=== PATIENT | female | born 1955 | race Caucasian/White ===

== ENCOUNTER → 2017-02-14 | Outpatient (CLI) | payer OTHER ==
[~2017-02-14] MED LIST: ASPI-515 PO; GLYB1.252 PO; LEVO137T3 PO; METF10002 PO; NITR50CA PO; PRAV10TA2 PO; RAMI5CAP PO; TRAM50TA2 PO
== END | disposition home or self-care (01) ==
LOC: RAD 11:32
PROVIDERS: ATTEND Registered Nurse
DX: M54.16 Radiculopathy, lumbar region (principal); Z98.1 Arthrodesis status; M51.37 Other intervertebral disc degeneration, lumbosacral region; M54.12 Radiculopathy, cervical region
CPT/HCPCS: 36415; 72050; 72110; 72148; 72156; 82565

== ENCOUNTER 2017-03-30 08:49 | Emergency (ER) | payer OTHER ==
[~2017-03-30] VITALS: Ht 177.8 cm; Wt 145.0 kg
[2017-03-30 08:51] VITALS: BP 161/92
[2017-03-30] MEDS ORDERED: METF500T4 PO ×2 (10:04)
[2017-03-30] MEDS ORDERED: SODIUM CHLORIDE 0.9% 1,000 ML IV ONE (10:20)
[2017-03-30] MEDS ORDERED: FAMOTIDINE 20 MG/2 ML IVP ONE (10:30)
[2017-03-30] MEDS ORDERED: MAALOX/HYOSCYAMINE/LIDOCAINE 45 ML BOTTLE PO ONE (10:30)
[2017-03-30] MEDS ORDERED: MAALOX/HYOSCYAMINE/LIDOCAINE 45 ML BOTTLE ONE (10:36)
[2017-03-30] MEDS ORDERED: ONDANSETRON 2MG/ML, 2ML ONE (10:36)
[2017-03-30] MEDS ORDERED: FAMOTIDINE 20 MG/2 ML ONE (10:36)
[2017-03-30] MEDS: ONDANSETRON 2MG/ML, 2ML IVPush ONE ×2 (10:56→10:59)
[2017-03-30 11:04] LABS: ASPARTATE AMINO TRANSFERASE 11 U/L (15-37); BLOOD UREA NITROGEN 14 mg/dL (7-18)
== END 2017-03-30 12:16 | disposition home or self-care (01) ==
LOC: ED 12:10
DX: R10.13 Epigastric pain (principal); R11.2 Nausea with vomiting, unspecified; M54.9 Dorsalgia, unspecified; G89.29 Other chronic pain; M19.90 Unspecified osteoarthritis, unspecified site; E11.9 Type 2 diabetes mellitus without complications; E66.9 Obesity, unspecified; Z90.49 Acquired absence of other specified parts of digestive tract; Z88.2 Allergy status to sulfonamides
CPT/HCPCS: 36415; 71010; 76700; 80053; 83690; 85025; 93005; 96361; 96374; J2405; J7030; S0028

== ENCOUNTER 2017-07-13 10:04 | Emergency (ER) | payer OTHER ==
[~2017-07-13] VITALS: Ht 177.8 cm; Wt 148.2 kg
[~2017-07-13 10:04] MED LIST changes: +METF500T4 PO
[2017-07-13] MEDS ORDERED: PHENYLEPHRINE NASAL 1%, 15ML SPRAY ONE (10:31)
[2017-07-13] MEDS ORDERED: LIDOCAINE 1%, 20ML ONE (10:31)
[2017-07-13] MEDS ORDERED: SILVER NITRATE STICK TP ONE (10:44)
[2017-07-13 11:03] VITALS: BP 150/84
== END 2017-07-13 11:43 | disposition home or self-care (01) ==
LOC: ED 11:35
DX: R04.0 Epistaxis (principal); E11.9 Type 2 diabetes mellitus without complications; M54.5 Low back pain; G89.29 Other chronic pain
CPT/HCPCS: 30901; 93005; 99284

== ENCOUNTER → 2017-07-18 | Outpatient (CLI) | payer OTHER | END | disposition home or self-care (01) | LOC: CFH 14:55 | PROVIDERS: ATTEND Internal Medicine Critical Care Medicine | DX: R91.8 Other nonspecific abnormal finding of lung field (principal) | CPT/HCPCS: 71250 ==

== ENCOUNTER 2017-09-26 11:12 | Emergency (ER) | payer OTHER ==
[~2017-09-26] VITALS: Ht 177.8 cm; Wt 142.0 kg
[2017-09-26] MEDS ORDERED: DIPHENHYDRAMINE 50 MG/ML, 1ML IVPush ONE (12:00)
[2017-09-26] MEDS ORDERED: SODIUM CHLORIDE 0.9% 1,000ML IVBOLUS ONE (12:00)
[2017-09-26] MEDS ORDERED: SODIUM CHLORIDE FLUSH 10ML SYR IVF ONE (12:00)
[2017-09-26] MEDS ORDERED: PROCHLORPERAZINE 5 MG/ML, 2ML IVPush ONE (12:00)
[2017-09-26 12:08] LABS: HEMATOCRIT 43.4 % (34.6-47.8); HEMOGLOBIN 14.3 g/dL (11.7-16.4); WHITE BLOOD COUNT 9.3 x10^3/uL (3.4-10)
[2017-09-26] MEDS ORDERED: DIPHENHYDRAMINE 50 MG/ML, 1ML ONE (12:10)
[2017-09-26] MEDS ORDERED: PROCHLORPERAZINE 5 MG/ML, 2ML ONE (12:10)
[2017-09-26 12:19] LABS: BLOOD UREA NITROGEN 13 mg/dL (7-18)
[2017-09-26 12:35] LABS: PATH.CAST-FLAG NOT PRESENT; SPERM-FLAG NOT PRESENT; SRC-FLAG NOT PRESENT; XTAL-FLAG NOT PRESENT; YLC-FLAG NOT PRESENT
[2017-09-26 14:56] VITALS: BP 134/75
== END 2017-09-26 14:59 | disposition home or self-care (01) ==
LOC: ED 12:10
DX: N30.00 Acute cystitis without hematuria (principal); E11.9 Type 2 diabetes mellitus without complications; M19.90 Unspecified osteoarthritis, unspecified site; Z90.49 Acquired absence of other specified parts of digestive tract; Z88.1 Allergy status to other antibiotic agents
CPT/HCPCS: 36415; 80048; 81001; 82040; 85025; 87077; 87086; 87147; 96361; 96374; 96375; 99284; J0780; J1200; J7030; 87186

== ENCOUNTER 2017-11-26 12:19 | Inpatient (IN) | payer OTHER ==
[~2017-11-26] VITALS: Ht 175.3 cm; Wt 143.3 kg
[2017-11-26] MEDS ORDERED: ASPIRIN 81 MG TABLET CHEW ONE (12:53)
[2017-11-26] MEDS ORDERED: ASPIRIN 81 MG TABLET CHEW PO ONE (13:00)
[2017-11-26 13:17] LABS: BASOPHILS # (AUTO) 0.02 x10^3/uL (0-0.1); BASOPHILS % (AUTO) 0 % (0-1); EOSINOPHILS # (AUTO) 0.15 x10^3/uL (0-0.4); EOSINOPHILS % (AUTO) 2 % (1-7); LYMPHOCYTES # (AUTO) 1.55 x10^3/uL (1-3.4); LYMPHOCYTES % (AUTO) 16 % (22-44); MD NO; MEAN CORPUSCULAR HEMOGLOBIN 29.8 pg (27.0-34.8); MEAN CORPUSCULAR HGB CONC 33.5 g/dL (32.4-35.8); MEAN PLATELET VOLUME 7.4 fL (7.4-10.4); MONOCYTES # (AUTO) 0.48 x10^3/uL (0.2-0.8); MONOCYTES % (AUTO) 5 % (2-9); NEUTROPHILS # (AUTO) 7.51 x10^3/uL (1.8-6.8); NEUTROPHILS % (AUTO) 77 % (42-75); PLATELET COUNT 301 x10^3/uL (130-400); RED BLOOD COUNT 4.68 x10^6/uL (3.82-5.3); RED CELL DISTRIBUTION WIDTH 14.4 % (9.6-15.2)
[2017-11-26 13:29] LABS: ALBUMIN 3.3 g/dL (3.4-5.0); ANION GAP 10 mmol/L (5-15); CALCIUM 8.5 mg/dL (8.5-10.1); CHLORIDE 110 mmol/L (98-107)
[2017-11-26 13:34] LABS: ALANINE AMINOTRANSFERASE 18 U/L (12-78); ALKALINE PHOSPHATASE 72 U/L (45-117); BILIRUBIN,TOTAL 0.7 mg/dL (0.2-1.0); CREATININE 0.74 mg/dL (0.55-1.02); TOTAL PROTEIN 6.5 g/dL (6.4-8.2); TROPONIN I < 0.015 ng/mL (0.000-0.045)
[2017-11-26] MEDS ORDERED: morphine SULFATE 10 MG/ML, 1ML IVPush PRN (16:00)
[2017-11-26] MEDS ORDERED: HYDROcodone/APAP 5/325 TABLET PO PRN (16:00)
[2017-11-26] MEDS ORDERED: DEXTROSE 50%, 50ML SYRINGE IVPush PRN (16:00)
[2017-11-26] MEDS ORDERED: ACETAMINOPHEN 325 MG TABLET PO PRN (16:00)
[2017-11-26] MEDS ORDERED: ONDANSETRON 2MG/ML, 2ML IVPush PRN (16:00)
[2017-11-26] MEDS ORDERED: DOCUSATE 100 MG CAPSULE PO PRN (16:00)
[2017-11-26] MEDS ORDERED: GLUCAGON 1 MG IM PRN (16:00)
[2017-11-26] MEDS ORDERED: DEXTROSE 4 GM TAB.CHEW PO PRN (16:00)
[2017-11-26] MEDS ORDERED: ENOXAPARIN 40 MG/0.4 ML SQ SCH (16:00)
[2017-11-26] MEDS: INSULIN ASPART 100 UNITS/ML, PEN SQ-INSULIN SCH ×2 (16:00→20:50)
[2017-11-26] MEDS ORDERED: POLYETHYLENE GLYCOL 17 GM PACKET PO PRN (16:00)
[2017-11-26 16:08] LABS: HEMOGLOBIN A1C 6.8 % (4.2-6.3)
[2017-11-26] MEDS ORDERED: metFORMIN 500 MG TABLET PO SCH (16:30)
[2017-11-26 19:43] VITALS: BP 124/73
[2017-11-26] MEDS ORDERED: PRAVASTATIN 40 MG TABLET ONE ×2 (20:51→21:00)
[2017-11-26] MEDS ORDERED: PRAVASTATIN 20 MG TABLET PO SCH (21:00)
[2017-11-26] MEDS: SODIUM CHLORIDE FLUSH 10ML SYR IVF SCH (21:04)
[2017-11-27] MEDS ORDERED: NS + 20MEQ KCL 1,000 ML IV SCH (00:10)
[2017-11-27 02:10] VITALS: BP 102/66
[2017-11-27 05:36] LABS: CHOLESTEROL, TOTAL 118 mg/dL (140-239)
[2017-11-27 05:37] LABS: ANION GAP 5 mmol/L (5-15); CALCIUM 7.9 mg/dL (8.5-10.1); CHLORIDE 113 mmol/L (98-107); CREATININE 0.59 mg/dL (0.55-1.02)
[2017-11-27 05:39] LABS: TRIGLYCERIDES 123 mg/dL (50-200)
[2017-11-27 05:40] LABS: CHOL/HDL RATIO 2.9; HDL CHOL % 35 % (28-40); HDL CHOLESTEROL (DIRECT) 41 mg/dL (40-60); LDL CHOLESTEROL,CALCULATED 52 mg/dL (54-169); LDL/HDL RATIO 1.3 (0.5-3.0); TROPONIN I < 0.015 ng/mL (0.000-0.045); VLDL CHOLESTEROL 25 mg/dL (0-25)
[2017-11-27] MEDS: INSULIN ASPART 100 UNITS/ML, PEN SQ-INSULIN SCH ×2 (05:48→11:51)
[2017-11-27 06:37] VITALS: BP 116/73
[2017-11-27] MEDS ORDERED: metFORMIN 500 MG TABLET PO SCH (07:30)
[2017-11-27] MEDS ORDERED: LEVOTHYROXINE 150 MCG TABLET ONE (07:40)
[2017-11-27] MEDS ORDERED: REGADENOSON 0.4 MG/5 ML SYRINGE ONE (07:55)
[2017-11-27] MEDS ORDERED: RAMIPRIL 2.5 MG CAPSULE PO SCH (09:00)
[2017-11-27] MEDS ORDERED: LEVOTHYROXINE 150 MCG TABLET PO SCH (09:00)
[2017-11-27] MEDS: SODIUM CHLORIDE FLUSH 10ML SYR IVF SCH (09:14)
[2017-11-27] MEDS ORDERED: metFORMIN XR 500 MG TAB.ER.24H ONE (11:53)
[2017-11-27 14:10] VITALS: BP 122/76
[2017-11-27] MEDS ORDERED: INSULIN LISPRO 100 UNITS/ML, PEN SQ-INSULIN SCH (16:00)
== END 2017-11-27 16:10 | disposition home or self-care (01) | DRG 313 ==
LOC: ED 13:16 → SUATTDRO 15:07 → EDIP 15:27 → 5SO 16:39
PROVIDERS: ADMIT Family Medicine; ATTEND Family Medicine
DX: R07.89 Other chest pain (principal); E66.01 Morbid (severe) obesity due to excess calories; Z68.42 Body mass index [BMI] 45.0-49.9, adult; E03.9 Hypothyroidism, unspecified; E11.9 Type 2 diabetes mellitus without complications; E78.5 Hyperlipidemia, unspecified; I10 Essential (primary) hypertension; M19.90 Unspecified osteoarthritis, unspecified site; Z82.49 Family history of ischemic heart disease and other diseases of the circulatory system; Z83.3 Family history of diabetes mellitus; G89.29 Other chronic pain; M54.9 Dorsalgia, unspecified; Z87.440 Personal history of urinary (tract) infections; Z88.2 Allergy status to sulfonamides
CPT/HCPCS: 36415; 71045; 78452; 80048; 80053; 80061; 82962; 83036; 84484; 85025; 93005; 93017; J2785; J3480; A9502; C9898

== ENCOUNTER → 2018-02-10 | Outpatient (CLI) | payer OTHER ==
[~2018-02-10] MED LIST changes: +OMNIPAQUE 350 MG/ML, 100ML BOTTLE ONE
== END | disposition home or self-care (01) ==
LOC: CFH 08:31
PROVIDERS: ATTEND Family Medicine
DX: R51 Headache (principal)
CPT/HCPCS: 70460; Q9967

== ENCOUNTER → 2018-02-20 | Outpatient (CLI) | payer OTHER ==
[~2018-02-20] MED LIST changes: -OMNIPAQUE 350 MG/ML, 100ML BOTTLE ONE
== END | disposition home or self-care (01) ==
LOC: RAD 11:22
PROVIDERS: ATTEND Family Medicine
DX: M79.662 Pain in left lower leg (principal); R60.0 Localized edema

== ENCOUNTER → 2018-04-12 | Outpatient (CLI) | payer OTHER | END | disposition home or self-care (01) | LOC: CFH 10:35 | PROVIDERS: ATTEND Family Medicine | DX: Z12.31 Encounter for screening mammogram for malignant neoplasm of breast (principal) | CPT/HCPCS: 77067 ==

== ENCOUNTER 2018-09-18 10:11 | Emergency (ER) | payer OTHER ==
[~2018-09-18] VITALS: Ht 175.3 cm; Wt 142.0 kg
[~2018-09-18 10:11] MED LIST changes: +METF500T17 PO; -METF500T4 PO; -RAMI5CAP PO; +RAMI5CAP57 PO
[2018-09-18] MEDS ORDERED: METF500T17 PO (11:07)
[2018-09-18 11:11] VITALS: BP 138/81
[2018-09-18] MEDS ORDERED: DIAZEPAM 5 MG TABLET ONE (11:16)
[2018-09-18] MEDS ORDERED: KETOROLAC 30 MG/1 ML ONE (11:16)
[2018-09-18] MEDS ORDERED: DIAZEPAM 5 MG TABLET PO ONE (11:30)
[2018-09-18] MEDS ORDERED: KETOROLAC 30 MG/1 ML IM ONE (11:30)
[2018-09-18] MEDS ORDERED: ASPIRIN 325 MG TABLET ONE (13:22)
[2018-09-18] MEDS ORDERED: ASPIRIN 325 MG TABLET PO ONE (13:30)
== END 2018-09-18 13:39 | disposition home or self-care (01) ==
LOC: ED 13:20
DX: R20.8 Other disturbances of skin sensation (principal); M62.838 Other muscle spasm; M54.9 Dorsalgia, unspecified; G89.29 Other chronic pain; E11.9 Type 2 diabetes mellitus without complications; Z90.49 Acquired absence of other specified parts of digestive tract
CPT/HCPCS: 70551; 93005; 96372; 99291; J1885

== ENCOUNTER → 2018-10-11 | Outpatient (CLI) | payer OTHER | END | disposition home or self-care (01) | LOC: CVU 12:53 | PROVIDERS: ATTEND Internal Medicine Cardiovascular Disease | DX: I83.813 Varicose veins of bilateral lower extremities with pain (principal); E11.9 Type 2 diabetes mellitus without complications; M17.0 Bilateral primary osteoarthritis of knee; E78.00 Pure hypercholesterolemia, unspecified | CPT/HCPCS: 93922; 93970 ==

== ENCOUNTER 2019-06-04 11:17 | Outpatient (CLI) | payer OTHER | END 2019-06-04 23:59 | disposition home or self-care (01) | LOC: CFH 11:17 | PROVIDERS: ATTEND Family Medicine | DX: Z12.31 Encounter for screening mammogram for malignant neoplasm of breast (principal) | CPT/HCPCS: 77067 ==

== ENCOUNTER 2019-09-03 09:19 | Emergency (ER) | payer OTHER ==
[~2019-09-03] VITALS: Ht 175.3 cm; Wt 139.0 kg
--- NOTE | 2019-09-03 09:41 | NUR ---
PT HERE WITH C/O OF LEFT LEG PAIN, PAIN BEHIND KNEE STARTED AT 0630 THIS AM, STATES LEG HAS BECOME "INCREASINGLY MORE NUMB." PT DENIES TRAUMA OR ANY HORMONE REPLACEMENT THERAPY OR HX DVT/PE. PT AAO X 4, NAD, ROOM AIR, VSS, DRESSED IN GOWN AND ATTACHED TO MONITOR. CALL LIGHT WITHIN REACH AND PA AT BEDISDE FOR EXAM. LEFT PEDAL PULSE MONOPHASIC ON DOPPLER BUT NOT PALPABLE. SIDERAIL X [address] PLAN FOR US. THIS RN TO CHECK FSBG.
--- NOTE | 2019-09-03 09:46 | NUR ---
FSBG 144, PA NOTIFIED AND NO NEW ORDERS RECEIVED.
--- NOTE | 2019-09-03 09:51 | NUR ---
US AT BEDSIDE.
[2019-09-03 10:37] VITALS: BP 142/69
--- NOTE | 2019-09-03 10:37 | NUR ---
ALL RESULTS BACK AT THIS TIME, CHART UP FOR RECHECK.
--- NOTE | 2019-09-03 11:12 | NUR ---
TECH AT BEDSIDE FOR CHERYL WRAP APPLICATION.
--- NOTE | 2019-09-03 11:20 | NUR ---
Patient/Caregiver given discharge instructions and they have confirmed that they understand the instructions. Patient ambulatory with steady gait.
== END 2019-09-03 11:43 | disposition home or self-care (01) ==
LOC: ED 11:10
DX: M71.22 Synovial cyst of popliteal space [Baker], left knee (principal); I10 Essential (primary) hypertension; E78.00 Pure hypercholesterolemia, unspecified; G89.29 Other chronic pain; E11.9 Type 2 diabetes mellitus without complications; M19.90 Unspecified osteoarthritis, unspecified site; Z90.49 Acquired absence of other specified parts of digestive tract
CPT/HCPCS: 99284

== ENCOUNTER 2019-11-04 13:56 | Emergency (ER) | payer OTHER ==
[~2019-11-04] VITALS: Ht 175.3 cm; Wt 136.7 kg
--- NOTE | 2019-11-04 14:45 | NUR ---
PT AMBULATORY WITH WALKER TO ROOM AT THIS TIME.
--- NOTE | 2019-11-04 15:01 | NUR ---
THIS IS A 64 YO FEMALE COMING IN FOR RLQ ABD CONSTANT PAIN RATED 02/14. Addendum: 11/04/19 at 1501 by LESLEY PAIN STARTED AT 0800 THIS MORNING, NO SPECIFIC EVENT LED TO START OF PAIN. PATIENT ALSO C/O "IT FEELS HOT AND LIKE THE HEAT GOES TO MY BACK". DENIES N/V/D, LAST BOWEL MOVEMENT YESTERDAY WITH NO CHANGE FROM NORM. DENIES ANY URINARY SYMPTOMS, NO REBOUND TENDERNESS, DENIES INCREASED PAIN WITH PALPATION. VSS, NAD, PLACED ON CONTINUOUS SPO2 AT 93% ON RA, CYCLE BP Q1HR. CALL LIGHT IN REACH, FAMILY IN ROOM, DENIES NEEDS AT THIS TIME. UA OBTAINED. PATIENT AMBULATED WITH STEADY GAIT TO RESTROOM.
[2019-11-04] MEDS ORDERED: SODIUM CHLORIDE FLUSH 10ML SYR IVF ONE (15:30)
[2019-11-04 15:32] LABS: MICROSCOPIC AUTO
[2019-11-04 15:36] LABS: CULTURE INDICATED? YES
[2019-11-04 15:37] LABS: BASOPHILS # (AUTO) 0.03 x10^3/uL (0-0.1); BASOPHILS % (AUTO) 0 % (0-1); EOSINOPHILS # (AUTO) 0.15 x10^3/uL (0-0.4); EOSINOPHILS % (AUTO) 2 % (1-7); LYMPHOCYTES # (AUTO) 1.26 x10^3/uL (1-3.4); LYMPHOCYTES % (AUTO) 13 % (22-44); MD NO; MEAN CORPUSCULAR HEMOGLOBIN 29.9 pg (27.0-34.8); MEAN CORPUSCULAR HGB CONC 32.9 g/dL (32.4-35.8); MEAN CORPUSCULAR VOLUME 90.8 fL (80-100); MEAN PLATELET VOLUME 7.6 fL (7.4-10.4); MONOCYTES # (AUTO) 0.59 x10^3/uL (0.2-0.8); MONOCYTES % (AUTO) 6 % (2-9); NEUTROPHILS # (AUTO) 7.45 x10^3/uL (1.8-6.8); NEUTROPHILS % (AUTO) 79 % (42-75); PLATELET COUNT 309 x10^3/uL (130-400); RED BLOOD COUNT 4.94 x10^6/uL (3.82-5.3); RED CELL DISTRIBUTION WIDTH 13.7 % (9.6-15.2)
[2019-11-04 15:44] LABS: ALANINE AMINOTRANSFERASE 21 U/L (12-78); ALBUMIN 3.4 g/dL (3.4-5.0); ANION GAP 8 mmol/L (5-15); CALCIUM 8.8 mg/dL (8.5-10.1); CHLORIDE 111 mmol/L (98-107); CREATININE 0.83 mg/dL (0.55-1.02)
[2019-11-04 15:46] LABS: ALKALINE PHOSPHATASE 72 U/L (45-117); BILIRUBIN,TOTAL 0.5 mg/dL (0.2-1.0)
--- NOTE | 2019-11-04 16:00 | NUR ---
PATIENT RESTING ON GURNEY, RESPIRATIONS EVEN AND UNLABORED, VSS, NAD, CALL LIGHT IN REACH, FAMILY IN ROOM, DENIES NEEDS AT THIS TIME.
--- NOTE | 2019-11-04 16:27 | NUR ---
PATIENT TO CT
[2019-11-04] MEDS ORDERED: OMNIPAQUE 350 MG/ML, 100ML BOTTLE ONE (17:04)
[2019-11-04 17:12] VITALS: BP 123/77
--- NOTE | 2019-11-04 17:12 | NUR ---
PATIENT RESTING ON GURNEY, FAMILY IN ROOM, VSS, NAD, CALL LIGHT IN REACH. AWAITING CT RESULTS
== END 2019-11-04 18:15 | disposition home or self-care (01) ==
LOC: ED 15:07
DX: N30.00 Acute cystitis without hematuria (principal); I10 Essential (primary) hypertension; E11.9 Type 2 diabetes mellitus without complications; E78.5 Hyperlipidemia, unspecified; E78.00 Pure hypercholesterolemia, unspecified; Z90.49 Acquired absence of other specified parts of digestive tract
CPT/HCPCS: 36415; 74177; 80053; 81001; 83690; 85025; 87077; 87086; 87186; 93005; 99284; Q9967

== ENCOUNTER 2019-12-29 16:30 | Observation (INO) | payer OTHER ==
[~2019-12-29] VITALS: Ht 175.3 cm; Wt 132.5 kg
--- NOTE | 2019-12-29 17:42 | NUR ---
BAKELITE MOLDER; PT TO ROOM FROM LOBBY AT THIS TIME. CRISTOFER
[2019-12-29 17:58] LABS: BASOPHILS # (AUTO) 0.01 x10^3/uL (0-0.1); BASOPHILS % (AUTO) 0 % (0-1); EOSINOPHILS # (AUTO) 0.12 x10^3/uL (0-0.4); EOSINOPHILS % (AUTO) 1 % (1-7); LYMPHOCYTES # (AUTO) 1.54 x10^3/uL (1-3.4); LYMPHOCYTES % (AUTO) 16 % (22-44); MD NO; MEAN CORPUSCULAR HEMOGLOBIN 30.4 pg (27.0-34.8); MEAN CORPUSCULAR HGB CONC 33.7 g/dL (32.4-35.8); MEAN CORPUSCULAR VOLUME 90.1 fL (80-100); MEAN PLATELET VOLUME 7.6 fL (7.4-10.4); MONOCYTES # (AUTO) 0.35 x10^3/uL (0.2-0.8); MONOCYTES % (AUTO) 4 % (2-9); NEUTROPHILS # (AUTO) 7.37 x10^3/uL (1.8-6.8); NEUTROPHILS % (AUTO) 79 % (42-75); PLATELET COUNT 295 x10^3/uL (130-400); RED BLOOD COUNT 5.17 x10^6/uL (3.82-5.3); RED CELL DISTRIBUTION WIDTH 13.6 % (9.6-15.2)
[2019-12-29] MEDS ORDERED: OMNIPAQUE 350 MG/ML, 100ML BOTTLE ONE (18:00)
--- NOTE | 2019-12-29 18:00 | NUR ---
late entry: Pt placed in bed on monitor, in gown, chest rise and fall equal bilaterally, at bedside. Code Neuro initiated, labs draw, IV set, Pt taken to CT. NAD, WCTM
[2019-12-29 18:09] LABS: INTERNATIONAL NORMALIZED RATIO 0.97 (0.93-1.1); PROTHROMBIN TIME 10.3 Seconds (9.6-11.5)
--- NOTE | 2019-12-29 18:18 | NUR ---
Pt back from CT given warm blanket, call light within reach, no additional needs at this time. MARIA DOLORES, NAZIA.
[2019-12-29 18:33] LABS: ANION GAP 9 mmol/L (5-15); CHLORIDE 110 mmol/L (98-107); CREATININE 0.79 mg/dL (0.55-1.02)
--- NOTE | 2019-12-29 18:41 | NUR ---
pt NAD, laying in gurney, at bedside. Denies additional needs at this time. Unlabored respirations noted. WCTM
--- NOTE | 2019-12-29 19:03 | NUR ---
Bedside report to Taylor ROMERO, pt care transferred at this time.
[2019-12-29] MEDS ORDERED: ASPIRIN 325 MG TABLET EC PO ONE (19:30)
--- NOTE | 2019-12-29 19:33 | NUR ---
HOSPITALIST AT BEDSIDE TO ADMIT PT
[2019-12-29] MEDS ORDERED: DOCUSATE 100 MG CAPSULE PO PRN (20:00)
[2019-12-29] MEDS ORDERED: POLYETHYLENE GLYCOL 17 GM PACKET PO PRN (20:00)
[2019-12-29] MEDS ORDERED: ONDANSETRON 4 MG TABLET PO PRN (20:00)
[2019-12-29] MEDS ORDERED: ACETAMINOPHEN 650 MG/20.3 ML UDC PO PRN (20:00)
[2019-12-29] MEDS ORDERED: BISACODYL 10 MG SUPP PR PRN (20:00)
[2019-12-29] MEDS ORDERED: ASPIRIN 325 MG TABLET EC ONE (20:07)
--- NOTE | 2019-12-29 20:57 | NUR ---
REPORT TO FLOOR RN ALL QUESTIONS ADDRESSED PT READY FOR TRANSPORT TO ROOM
--- NOTE | 2019-12-29 20:59 | NUR ---
SPOKE WITH PHARMACY ABOUT LEVOTHYROXINE. PT ASKED AND PHARMACY UPDATED AND WILL SPEAK WITH
[2019-12-29] MEDS: metFORMIN 500 MG TABLET PO SCH (21:00)
[2019-12-29 21:34] VITALS: BP 143/83
[2019-12-29] MEDS ORDERED: ATORVASTATIN 10 MG TABLET PO SCH ×2 (22:00→22:12)
[2019-12-30 01:17] VITALS: BP 104/66
[2019-12-30 05:09] LABS: BASOPHILS # (AUTO) 0.05 x10^3/uL (0-0.1); BASOPHILS % (AUTO) 1 % (0-1); EOSINOPHILS # (AUTO) 0.14 x10^3/uL (0-0.4); EOSINOPHILS % (AUTO) 2 % (1-7); LYMPHOCYTES # (AUTO) 2.15 x10^3/uL (1-3.4); LYMPHOCYTES % (AUTO) 24 % (22-44); MD NO; MEAN CORPUSCULAR HEMOGLOBIN 30.4 pg (27.0-34.8); MEAN CORPUSCULAR HGB CONC 33.5 g/dL (32.4-35.8); MEAN CORPUSCULAR VOLUME 90.8 fL (80-100); MEAN PLATELET VOLUME 7.8 fL (7.4-10.4); MONOCYTES # (AUTO) 0.69 x10^3/uL (0.2-0.8); MONOCYTES % (AUTO) 8 % (2-9); NEUTROPHILS # (AUTO) 5.88 x10^3/uL (1.8-6.8); NEUTROPHILS % (AUTO) 66 % (42-75); PLATELET COUNT 257 x10^3/uL (130-400); RED BLOOD COUNT 4.58 x10^6/uL (3.82-5.3); RED CELL DISTRIBUTION WIDTH 13.8 % (9.6-15.2)
[2019-12-30 05:20] LABS: CALCIUM 8.5 mg/dL (8.5-10.1); CHLORIDE 112 mmol/L (98-107)
[2019-12-30 05:26] LABS: ALANINE AMINOTRANSFERASE 24 U/L (12-78); ALBUMIN 3.1 g/dL (3.4-5.0); ALKALINE PHOSPHATASE 52 U/L (45-117); ANION GAP 7 mmol/L (5-15); BILIRUBIN,TOTAL 0.5 mg/dL (0.2-1.0); CHOL/HDL RATIO 3.5; CHOLESTEROL, TOTAL 120 mg/dL (140-239); CREATININE 0.71 mg/dL (0.55-1.02); HDL CHOL % 28 % (28-40); HDL CHOLESTEROL (DIRECT) 34 mg/dL (40-60); LDL CHOLESTEROL,CALCULATED 51 mg/dL (54-169); LDL/HDL RATIO 1.5 (0.5-3.0); TOTAL PROTEIN 6.2 g/dL (6.4-8.2); TRIGLYCERIDES 175 mg/dL (50-200); VLDL CHOLESTEROL 35 mg/dL (0-25)
[2019-12-30 08:48] VITALS: BP 126/78
[2019-12-30] MEDS: metFORMIN 500 MG TABLET PO SCH ×2 (09:00→12:46)
[2019-12-30] MEDS ORDERED: ASPIRIN 81 MG TABLET CHEW PO/NG SCH (09:00)
[2019-12-30] MEDS ORDERED: RAMIPRIL 5 MG CAP PO SCH (09:00)
[2019-12-30] MEDS ORDERED: LEVOTHYROXINE 150 MCG TABLET PO SCH (12:35)
[2019-12-30 14:25] VITALS: BP 118/75
[2019-12-30] MEDS ORDERED: ASPI-515 PO (16:00)
== END 2019-12-30 17:00 | disposition home or self-care (01) ==
LOC: ED 19:24 → INTOOBSV 19:25 → EDIP 19:25 → 4EST 21:12
PROVIDERS: ADMIT Family Medicine; ATTEND Family Medicine
DX: R53.1 Weakness (principal); E03.9 Hypothyroidism, unspecified; E11.9 Type 2 diabetes mellitus without complications; E66.01 Morbid (severe) obesity due to excess calories; E78.00 Pure hypercholesterolemia, unspecified; E78.5 Hyperlipidemia, unspecified; I10 Essential (primary) hypertension; M19.90 Unspecified osteoarthritis, unspecified site; Z66 Do not resuscitate; R04.0 Epistaxis; Z88.2 Allergy status to sulfonamides; Z79.899 Other long term (current) drug therapy; Z79.84 Long term (current) use of oral hypoglycemic drugs; Z79.82 Long term (current) use of aspirin
CPT/HCPCS: 36415; 70450; 70496; 70498; 70551; 80048; 80053; 80061; 82962; 83036; 85025; 85610; 85730; 93005; 93306; 99291; G0378; Q9967

== ENCOUNTER 2020-06-01 15:03 | Emergency (ER) | payer OTHER ==
[~2020-06-01] VITALS: Ht 175.3 cm; Wt 133.8 kg
--- NOTE | 2020-06-01 15:38 | NUR ---
PT IN GOWN IN [facility]. PT ATTACHED TO VS MONITORS. VSS AT THIS TIME. PT AND SPOUSE EDUCATED ON ER PROCESS AND VERBALIZES UNDERSTANDING. CALL LIGHT IS WITHIN REACH OF PT. AWAITING ERP AT THIS TIME.
--- NOTE | 2020-06-01 15:53 | NUR ---
US AT BS AT THIS TIME.
--- NOTE | 2020-06-01 18:36 | NUR ---
PT D/C WITH D/C SUMMARY AND SCRIPTS IN CARE OF . PT VSS AND UPDATED IN EMR PRIOR TO D/C. PT DENIES ANY OTHER NEEDS PERTAINING TO THIS VISIT. WHEELCHAIR PROVIDED FOR TRANSPORTATION OF PT FROM ROOM TO D/C DESK. PT QUESTIONS ANSWERED AT THIS TIME.
[2020-06-01 18:37] VITALS: BP 125/68
== END 2020-06-01 18:39 | disposition home or self-care (01) ==
LOC: ED 17:12
DX: M71.22 Synovial cyst of popliteal space [Baker], left knee (principal); J01.00 Acute maxillary sinusitis, unspecified; I10 Essential (primary) hypertension; E11.9 Type 2 diabetes mellitus without complications; E78.00 Pure hypercholesterolemia, unspecified; E78.5 Hyperlipidemia, unspecified; Z90.49 Acquired absence of other specified parts of digestive tract
CPT/HCPCS: 99284